=== PATIENT | male | born 1960 | race Two or more races ===

== ENCOUNTER 2018-12-29 18:17 | Emergency (ER) | payer MEDICAID ==
[~2018-12-29] VITALS: Ht 175.3 cm; Wt 90.7 kg
--- NOTE | 2018-12-29 18:17 | NUR ---
ED Nurse Note: pt is placed to room with sitter provided for safety.
[2018-12-29] MEDS ORDERED: XANAX0.5 MG ORAL (18:25)
[2018-12-29] MEDS ORDERED: LEXAPRO20 MG ORAL (18:25)
[2018-12-29 18:30] VITALS: BP 143/75
--- NOTE | 2018-12-29 18:30 | NUR ---
ED Nurse Note: Received pt from [facility] and . pt on 5150 hold for danger to self. pt brought from home due to he told family member that he will shot himself. pt appear to be drunk and hx of alcohol abuse. AAO x3. respirations even and non-labored noted. pt is cooperative. help pt to be undressed. denies SI/HI at this time. Maico, EMT at the bed side for sitter. will wait for the further order.
--- NOTE | 2018-12-29 18:35 | NUR ---
ED Nurse Note: pt has dried redness rashes on all over the body.
--- NOTE | 2018-12-29 18:44 | NUR ---
ED Nurse Note: pt belongings placed on locker #1
--- NOTE | 2018-12-29 19:05 | NUR ---
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
--- NOTE | 2018-12-29 19:24 | NUR ---
HAND-OFF: Report given to CHELSI Manning.
[2018-12-29 19:38] LABS: ANION GAP 18 mmol/L (5-15); BLOOD UREA NITROGEN 12 mg/dL (7-18); CALCIUM 8.9 MG/DL (8.5-10.1); CARBON DIOXIDE 21 MMOL/L (21-32); CHLORIDE 104 MMOL/L (98-107); POTASSIUM 3.8 MMOL/L (3.5-5.1); SODIUM 143 MMOL/L (136-145)
[2018-12-29 19:44] LABS: ALANINE AMINOTRANSFERASE 95 U/L (12-78); ALBUMIN 3.9 G/DL (3.4-5.0); ALBUMIN/GLOBULIN RATIO 0.8 (1.0-2.7); ALKALINE PHOSPHATASE 87 U/L (46-116); ASPARTATE AMINO TRANSFERASE 83 U/L (15-37); BILIRUBIN,TOTAL 0.6 MG/DL (0.2-1.0)
--- NOTE | 2018-12-29 20:40 | NUR ---
ED Nurse Note: Assisted pt to void, urine sample collected and sent to Lab.
[2018-12-29] MEDS ORDERED: LORazepam Inj 2mg/ml 1ml IV ONE (21:00)
[2018-12-29 21:12] LABS: APPEARANCE,URINE CLEAR; BILIRUBIN, URINE NEGATIVE (NEGATIVE); GLUCOSE, URINE (UA) NEGATIVE (NEGATIVE); KETONES,URINE 2+ (NEGATIVE); LEUKOCYTE ESTERASE ,URINE NEGATIVE (NEGATIVE); NITRITE,URINE NEGATIVE (NEGATIVE); PH,URINE 5 (4.5-8.0); PROTEIN,URINE 3+ (NEGATIVE); UROBILINOGEN,URINE 1 MG/DL (0.0-1.0)
[2018-12-29 21:14] LABS: COLOR,URINE YELLOW
--- NOTE | 2018-12-29 21:20 | NUR ---
ED Nurse Note: Provided a cup of water and a sandwiches,
--- NOTE | 2018-12-29 21:21 | NUR ---
ED Nurse Note: Repeat CBC sent to Lab again.
[2018-12-29 21:40] LABS: HEMATOCRIT 40.6 % (42.0-52.0); HEMOGLOBIN 14.5 G/DL (14.2-18.0); MEAN CORPUSCULAR VOLUME 93 FL (80-99); PLATELET COUNT 193 K/UL (150-450); RED BLOOD COUNT 4.36 M/UL (4.70-6.10); RED CELL DISTRIBUTION WIDTH 10.9 % (11.6-14.8); WHITE BLOOD COUNT 13.6 K/UL (4.8-10.8)
[2018-12-29 21:41] LABS: BASOPHILS % (AUTO) 1.2 % (0.0-2.0); EOSINOPHILS % (AUTO) 0.1 % (0.0-3.0); LYMPHOCYTES % (AUTO) 7.1 % (20.0-45.0); MONOCYTES % (AUTO) 4.3 % (1.0-10.0); NEUTROPHILS % (AUTO) 87.3 % (45.0-75.0)
--- NOTE | 2018-12-29 22:20 | Emergency Room Report ---
History of Present Illness General Chief Complaint: Suicidal Source: Patient, EMS (Lorne Rojo MD) Present Illness HPI 58-year-old male presents ED for evaluation. Brought in by EMS from home. Reportedly drinking all day and told family that he wanted a gun to kill himself. Patient does have psychiatric history. Upon arrival patient is intoxicated and not endorsing SI or HI. [employer] at bedside. Patient denies drug use. Denies chest pain or shortness of breath. Denies abdominal pain nausea or vomiting. No other aggravating relieving factors. Denies any other associated symptoms (Lorne Rojo MD) Allergies: Coded Allergies: No Known Allergies (Unverified , 12/29/18) Patient History Past Medical History: DM, HTN, psych hx Past Surgical History: none Pertinent Family History: none Social History: Reports: alcohol use; Denies: smoking, drug use Immunizations: UTD Reviewed Nursing Documentation: PMH: Agreed; PSxH: Agreed (Lorne Rojo MD) Nursing Documentation-PMH Hx Hypertension: Yes Hx Diabetes: Yes History Of Psychiatric Problem: Yes - depression (Lorne Rojo MD) Review of Systems All Other Systems: negative except mentioned in HPI (Lorne Rojo MD) Physical Exam Vital Signs Date Time Temp Pulse Resp B/P (MAP) Pulse Ox O2 Delivery O2 Flow Rate FiO2 12/29/18 18:17 97.9 94 16 143/75 (97) 94 Room Air Sp02 EP Interpretation: reviewed, normal General Appearance: no apparent distress, other - intoxicated Head: normocephalic, atraumatic Eyes: bilateral eye normal inspection, bilateral eye PERRL ENT: hearing grossly normal, normal pharynx, no angioedema, normal voice Neck: full range of motion, supple/symm/no masses Respiratory: chest non-tender, lungs clear, normal breath sounds, speaking full sentences Cardiovascular #1: regular rate, rhythm, no edema Cardiovascular #2: 2+ carotid (R), 2+ carotid (L), 2+ radial (R), 2+ radial (L) , 2+ dorsalis pedis (R), 2+ dorsalis pedis (L) Gastrointestinal: normal bowel sounds, non tender, soft, non-distended, no guarding, no rebound Rectal: deferred Genitourinary: normal inspection, no CVA tenderness Musculoskeletal: back normal, gait/station normal, normal range of motion, non- tender Neurologic: responsive, motor strength/tone normal, sensory intact, speech normal, other - intoxicated Psychiatric: depressed affect, other - intoxicated Reflexes: 3+ bicep (R), 3+ bicep (L), 3+ tricep (R), 3+ tricep (L), 3+ knee (R) , 3+ knee (L) Skin: normal color, no rash, warm/dry, well hydrated Lymphatic: no adenopathy (Lorne Rojo MD) Medical Decision Making Diagnostic Impression: Primary Impression: Alcohol intoxication Qualified Codes: F10.920 - Alcohol use, unspecified with intoxication, uncomplicated Additional Impression: Suicidal ideation Labs Test 12/29/18 18:55 12/29/18 20:55 12/29/18 21:30 Sodium Level 143 MMOL/L (136-145) Potassium Level 3.8 MMOL/L (3.5-5.1) Chloride Level 104 MMOL/L (98-107) Carbon Dioxide Level 21 MMOL/L (21-32) Anion Gap 18 mmol/L (5-15) Blood Urea Nitrogen 12 mg/dL (7-18) Creatinine 1.0 MG/DL (0.55-1.30) Estimat Glomerular Filtration Rate > 60 mL/min (>60) Glucose Level 70 MG/DL (74-106) Calcium Level 8.9 MG/DL (8.5-10.1) Total Bilirubin 0.6 MG/DL (0.2-1.0) Aspartate Amino Transf (AST/SGOT) 83 U/L (15-37) Alanine Aminotransferase (ALT/SGPT) 95 U/L (12-78) Alkaline Phosphatase 87 U/L (46-116) Total Protein 8.5 G/DL (6.4-8.2) Albumin 3.9 G/DL (3.4-5.0) Globulin 4.6 g/dL Albumin/Globulin Ratio 0.8 (1.0-2.7) Salicylates Level 4.0 ug/mL (2.8-20) Acetaminophen Level < 2 MCG/ML (10-30) Serum Alcohol 316 mg/dL Urine Color Yellow Urine Appearance Clear Urine pH 5 (4.5-8.0) Urine Specific [place] 1.020 (1.005-1.035) Urine Protein 3+ (NEGATIVE) Urine Glucose (UA) Negative (NEGATIVE) Urine Ketones 2+ (NEGATIVE) Urine Blood 1+ (NEGATIVE) Urine Nitrite Negative (NEGATIVE) Urine Bilirubin Negative (NEGATIVE) Urine Urobilinogen 1 MG/DL (0.0-1.0) Urine Leukocyte Esterase Negative (NEGATIVE) Urine RBC 0-2 /HPF (0 - 0) Urine WBC 0-2 /HPF (0 - 0) Urine Squamous Epithelial Cells Occasional /LPF Urine Bacteria Few /HPF (NONE) Urine Opiates Screen Negative (NEGATIVE) Urine Barbiturates Screen Negative (NEGATIVE) Phencyclidine (PCP) Screen Negative (NEGATIVE) Urine Amphetamines Screen Negative (NEGATIVE) Urine Benzodiazepines Screen Negative (NEGATIVE) Urine Cocaine Screen Negative (NEGATIVE) Urine Marijuana (THC) Screen Negative (NEGATIVE) White Blood Count 13.6 K/UL (4.8-10.8) Red Blood Count 4.36 M/UL (4.70-6.10) Hemoglobin 14.5 G/DL (14.2-18.0) Hematocrit 40.6 % (42.0-52.0) Mean Corpuscular Volume 93 FL (80-99) Mean Corpuscular Hemoglobin 33.2 PG (27.0-31.0) Mean Corpuscular Hemoglobin Concent 35.7 G/DL (32.0-36.0) Red Cell Distribution Width 10.9 % (11.6-14.8) Platelet Count 193 K/UL (150-450) Mean Platelet Volume 6.5 FL (6.5-10.1) Neutrophils (%) (Auto) 87.3 % (45.0-75.0) Lymphocytes (%) (Auto) 7.1 % (20.0-45.0) Monocytes (%) (Auto) 4.3 % (1.0-10.0) Eosinophils (%) (Auto) 0.1 % (0.0-3.0) Basophils (%) (Auto) 1.2 % (0.0-2.0) (Lorne Rojo MD) ER Course Patient signed out to me. He presents with suicidal thoughts and also has a very high alcohol level. He has been sleeping through the night without any problem. Repeat labs unremarkable. Alcohol level less than 100. He is medically clear for psychiatric evaluation. (Gilberto Simpson MD) ER Course Please see above note. Patient awake and coherent. Ate breakfast. Ambulatory. He denies SI. Never to AA. States wants to go home. Will have psychiatry eval for removal of hold. Patient evaluated by psychiatrist. Hold removed. No signs of alcohol withdrawal. Family member present. Discharge instructions given. Referrals for rehab and alcohol treatment given. Patient stable for outpatient observation and treatment. (Gwyn Dawkins MD) Last Vital Signs Date Time Temp Pulse Resp B/P (MAP) Pulse Ox O2 Delivery O2 Flow Rate FiO2 12/29/18 18:30 94 16 Room Air 12/29/18 18:30 97.9 143/75 94 Status: improved (Lorne Rojo MD) Status: improved (Gilberto Simpson MD) Last Vital Signs Date Time Temp Pulse Resp B/P (MAP) Pulse Ox O2 Delivery O2 Flow Rate FiO2 12/30/18 12:10 97.9 94 16 143/75 94 Room Air Status: improved (Gwyn Dawkins MD) Disposition: HOME, SELF-CARE Condition: Improved Referrals: NOT CHOSEN [facility]/,REFERRING (PCP) Lorne Rojo MD Dec 29, 2018 22:20 Gilberto Simpson MD Dec 30, 2018 04:38 Gwyn Dawkins MD Dec 30, 2018 07:41
--- NOTE | 2018-12-29 22:55 | NUR ---
ED Nurse Note: 2 cups of orange juices provided.
[2018-12-29] MEDS ORDERED: Morphine Sulfate 2mg/ml Inj(IV/IM USE ONLY) IVP PRN (23:15)
[2018-12-29] MEDS ORDERED: chlordiazePOXIDE 25mg Cap ORAL PRN (23:15)
[2018-12-29] MEDS ORDERED: Folic Acid 1 MG, Magnesium Sulfate 2,000 MG, Multivitamin - 12 Injection 10 ML in NS w/... IV SCH (23:15)
[2018-12-29] MEDS ORDERED: Miralax 17gm pkt ORAL PRN (23:15)
[2018-12-29] MEDS ORDERED: Zolpidem 5mg tab ORAL PRN (23:15)
[2018-12-29] MEDS ORDERED: LORazepam Inj 2mg/ml 1ml IV PRN (23:15)
[2018-12-29] MEDS ORDERED: Thiamine HCl 100 MG in NS 110 ML IV SCH (23:30)
--- NOTE | 2018-12-30 01:05 | NUR ---
ED Nurse Note: Wrong order entrance noted by Dr. Tran, Informed Charge nurse/ Annika.
--- NOTE | 2018-12-30 01:06 | NUR ---
ED Nurse Note: Wrong order entrance noted by Dr. Tran, Informed Charge nurse/ Mara. LEE's code is [id number] which enter on 12/29/18 @23:05.
--- NOTE | 2018-12-30 03:34 | NUR ---
ED Nurse Note: Pt is awake, alert and oriented x 4; steady gait. Denies SI at this time, stating, "No, No, I just drank too much." Addendum: 12/30/18 at 0502 by MSCHRAGE Pt denies owning a gun.
[2018-12-30 04:12] LABS: EOSINOPHILS % (AUTO) 0.9 % (0.0-3.0); HEMATOCRIT 43.1 % (42.0-52.0); HEMOGLOBIN 15.2 G/DL (14.2-18.0); LYMPHOCYTES % (AUTO) 11.9 % (20.0-45.0); MEAN CORPUSCULAR VOLUME 97 FL (80-99); NEUTROPHILS % (AUTO) 79.1 % (45.0-75.0); PLATELET COUNT 151 K/UL (150-450); RED BLOOD COUNT 4.44 M/UL (4.70-6.10); RED CELL DISTRIBUTION WIDTH 11.1 % (11.6-14.8); WHITE BLOOD COUNT 9.6 K/UL (4.8-10.8)
[2018-12-30 04:36] LABS: ALANINE AMINOTRANSFERASE 114 U/L (12-78); ALBUMIN 3.1 G/DL (3.4-5.0); ALBUMIN/GLOBULIN RATIO 0.8 (1.0-2.7); ALKALINE PHOSPHATASE 72 U/L (46-116); ANION GAP 13 mmol/L (5-15); ASPARTATE AMINO TRANSFERASE 126 U/L (15-37); BILIRUBIN,TOTAL 0.6 MG/DL (0.2-1.0); BLOOD UREA NITROGEN 14 mg/dL (7-18); CALCIUM 7.8 MG/DL (8.5-10.1); CARBON DIOXIDE 21 MMOL/L (21-32); CHLORIDE 106 MMOL/L (98-107); CREATININE 0.9 MG/DL (0.55-1.30); POTASSIUM 3.7 MMOL/L (3.5-5.1); SODIUM 140 MMOL/L (136-145)
--- NOTE | 2018-12-30 06:31 | NUR ---
ED Nurse Note: Endorsed to Sarah for continue care.
--- NOTE | 2018-12-30 06:32 | NUR ---
ED Nurse Note: received report from Annika, that folvite 1mg and vitamin B1 100mg were not administered because both are not ER orders
--- NOTE | 2018-12-30 07:00 | NUR ---
ED Nurse Note: Kashif Cantu at the bedside. Pt awake and alert, eating breakfast with no s/s of acute distress noted at this time. Suicidal precaution initiated
--- NOTE | 2018-12-30 07:10 | NUR ---
HAND-OFF: Report given toAbigail/RN for continue care. Ptis A/O X4. VSS.
--- NOTE | 2018-12-30 07:12 | NUR ---
ED Nurse Note: Received patient in bed, breathing unlabored and even. patient is done with his breakfast.
[2018-12-30] MEDS ORDERED: Heparin 5000 units/ml inj SUBQ SCH (09:00)
--- NOTE | 2018-12-30 09:04 | NUR ---
ED Nurse Note: Heparin subq ordered by Dr. Tran not followed because patient is in ER, pending psych evaluation.
--- NOTE | 2018-12-30 09:11 | NUR ---
ED Nurse Note: Spoke with nephew Travis Alexander [phone]. pt ok to discuss his status with nephew. chino Cantu at bedside.
--- NOTE | 2018-12-30 10:14 | NUR ---
ED Nurse Note: Dr. Solis at the bedside with the primary nurse
--- NOTE | 2018-12-30 10:22 | NUR ---
ED Nurse Note: Dr. Solis lifted the hold. Pt. is not on hold anymore
[2018-12-30 12:10] VITALS: BP 143/75
--- NOTE | 2018-12-30 12:10 | NUR ---
ER DISCHARGE NOTE: Patient is cleared to be discharged per ERMJordan Dawkins, Dr. Irma vila hold for this patient. pt is aox4, on room air, with stable vital signs. pt was given dc and prescription instructions, pt was able to verbalize understanding, pt id band and iv site removed without complications. pt is able to ambulate with steady gait. Patient's nephew Travis picked up the patient. pt took all belongings.
--- NOTE | 2018-12-30 19:00 | Consultation ---
DATE OF CONSULTATION: 12/30/2018 HISTORY OF PRESENT ILLNESS: This is a 58-year-old [place] man with a history of alcohol dependence who is being admitted to the [facility] ER on a 5150 for danger to self. When the patient was intoxicated, he reported to his nephew that he has thoughts of dying. During the evaluation, the patient was calm, sobered up. Denies having any suicidal or homicidal ideation. He stated when he in intoxicated, he has tendency to become more depressed and anxious and have thoughts of dying. The patient stated that he is motivated to stop using however PAST PSYCHIATRY HISTORY: He has no history of psychiatrist hospitalization, no 5150. No suicide attempts. PAST MEDICAL HISTORY: Obesity, hyperlipidemia. ALLERGIES: No known drug allergies. SUBSTANCE ABUSE HISTORY: Significant for alcohol. Denied any illicit drug use. MENTAL STATUS EXAMINATION: The patient is oriented to self. Mood is anxious. Affect is constricted, congruent with mood. Thought process is linear and goal oriented. Thought content, no suicidal or homicidal ideation. No psychotic symptoms. Insight and judgment is clear. ASSESSMENT: Alpha I Alcohol dependence, Alpha II Deferred. Alpha III None. Alpha IV Low to moderate. Alpha V 50. PLAN: 1. We will discontinue 5150. 2. The patient will be discharged to the outpatient level of care. 3. The patient will be given referral to drug and alcohol program. The patient is reluctant to take psychotropic medication. 4. Daniel Solis M.D. DR: Gely JOB#: [id number] CC:
== END 2018-12-30 12:10 | disposition home or self-care (01) ==
LOC: EDBD 18:17 → EMR 19:00
DX: R45.851 Suicidal ideations (principal); F10.920 Alcohol use, unspecified with intoxication, uncomplicated; E11.9 Type 2 diabetes mellitus without complications; I10 Essential (primary) hypertension
CPT/HCPCS: 36415; 80053; 80307; 80329; 81003; 85025; 96361; 96374; 99285

== ENCOUNTER 2020-04-11 09:28 | Emergency (ER) | payer OTHER ==
[~2020-04-11] VITALS: Ht 165.1 cm; Wt 77.1 kg
[2020-04-11 09:24] VITALS: BP 147/67
[~2020-04-11 09:28] MED LIST: LEXAPRO20 MG ORAL; XANAX0.5 MG ORAL
[2020-04-11] MEDS ORDERED: Aspirin Baby 81mg ORAL ONE (10:15)
[2020-04-11 10:23] LABS: BASOPHILS % (AUTO) 0.9 % (0.0-2.0); EOSINOPHILS % (AUTO) 2.3 % (0.0-3.0); HEMATOCRIT 41.4 % (42.0-52.0); LYMPHOCYTES % (AUTO) 19.3 % (20.0-45.0); MEAN CORPUSCULAR VOLUME 87 FL (80-99); MONOCYTES % (AUTO) 7.2 % (1.0-10.0); NEUTROPHILS % (AUTO) 70.3 % (45.0-75.0); PLATELET COUNT 241 K/UL (150-450); RED BLOOD COUNT 4.74 M/UL (4.70-6.10); RED CELL DISTRIBUTION WIDTH 10.9 % (11.6-14.8); WHITE BLOOD COUNT 7.5 K/UL (4.8-10.8)
[2020-04-11 10:27] LABS: APPEARANCE,URINE CLEAR; BILIRUBIN, URINE NEGATIVE (NEGATIVE); GLUCOSE, URINE (UA) NEGATIVE (NEGATIVE); KETONES,URINE 1+ (NEGATIVE); LEUKOCYTE ESTERASE ,URINE NEGATIVE (NEGATIVE); NITRITE,URINE NEGATIVE (NEGATIVE); PH,URINE 7 (4.5-8.0); PROTEIN,URINE NEGATIVE (NEGATIVE); UROBILINOGEN,URINE NORMAL MG/DL (0.0-1.0)
[2020-04-11 10:29] LABS: COLOR,URINE YELLOW
[2020-04-11 10:36] LABS: ANION GAP 4 mmol/L (5-15); BLOOD UREA NITROGEN 19 mg/dL (7-18); CALCIUM 9.2 MG/DL (8.5-10.1); CARBON DIOXIDE 31 MMOL/L (21-32); CHLORIDE 100 MMOL/L (98-107); POTASSIUM 3.9 MMOL/L (3.5-5.1); SODIUM 135 MMOL/L (136-145)
[2020-04-11 10:50] LABS: ALBUMIN 3.6 G/DL (3.4-5.0); ALBUMIN/GLOBULIN RATIO 0.8 (1.0-2.7); ALKALINE PHOSPHATASE 75 U/L (46-116); ASPARTATE AMINO TRANSFERASE 19 U/L (15-37); BILIRUBIN,TOTAL 0.4 MG/DL (0.2-1.0)
--- NOTE | 2020-04-11 10:59 | Diagnostic Imaging Report ---
EXAM: CT CT Neck no Contrast CLINICAL HISTORY: Reason For Exam: DYSPHAGIA. "Food stuck in throat for 2 days" TECHNIQUE: Axial images obtained through the neck without administration of contrast. Coronal and sagittal reformatted images were also obtained. All CT scans at this facility are performed using dose modulation techniques as appropriate to a performed exam including the following: automated exposure control with adjustment of the mA and/or kV according to patient size. RADIATION DOSE: CTDIvol: 14.6 mGy DLP: 472.4 mGy-cm Dose information generated by the CT scanner is available in PACS. COMPARISON: None FINDINGS: Visualized portions of the nasal sinuses appears normally pneumatized and aerated. Pharyngeal and parapharyngeal soft tissue space is normal. [place] tonsillar pillars are unremarkable. The salivary glands are symmetric bilaterally. There are several small scattered lymph nodes noted but no pathologic adenopathy seen presently. The base of the tongue and floor of the mouth region appears unremarkable. Epiglottic and vocal cord regions also normal. The thyroid appears homogeneous. There is no supraclavicular adenopathy. Specifically there is no radiopaque foreign body demonstrated. IMPRESSION: No radiopaque foreign body identified.
[2020-04-11 11:04] LABS: ALANINE AMINOTRANSFERASE 29 U/L (12-78)
[2020-04-11 11:24] VITALS: BP 152/81
[2020-04-11 13:10] VITALS: BP 146/79
--- NOTE | 2020-04-11 13:18 | Emergency Room Report ---
History of Present Illness General Chief Complaint: General Complaint Source: Patient, EMS Present Illness HPI Patient is a 59-year-old male who presented after increased chest discomfort and difficulty with swallowing. Prior history of CVA. Patient had previous myocardial infarction and had previously been placed on ECMO. Had Allergies: Coded Allergies: No Known Allergies (Unverified , 12/29/18) COVID-19 Screening Contact w/high risk pt: No Experienced COVID-19 symptoms?: No COVID-19 Testing performed DATA BASE DESIGN ANALYST: No Patient History Past Medical History: see triage record Reviewed Nursing Documentation: PMH: Agreed; PSxH: Agreed Nursing Documentation-PMH Hx Hypertension: Yes Review of Systems All Other Systems: negative except mentioned in HPI Physical Exam Vital Signs Date Time Temp Pulse Resp B/P (MAP) Pulse Ox O2 Delivery O2 Flow Rate FiO2 04/11/20 09:16 98.6 60 16 147/67 (93) 99 Room Air Sp02 EP Interpretation: reviewed, normal General Appearance: normal inspection, well appearing, no apparent distress, alert, GCS 15, non-toxic, Chronically Ill Head: atraumatic ENT: normal ENT inspection, hearing grossly normal, normal voice Neck: normal inspection, full range of motion, supple, no bony tend Respiratory: normal inspection, lungs clear, normal breath sounds, no respiratory distress, no retraction, no wheezing Cardiovascular #1: regular rate, rhythm, no edema Gastrointestinal: normal inspection, normal bowel sounds, non tender, soft, no guarding, no hernia Genitourinary: no CVA tenderness Musculoskeletal: normal inspection, back normal, normal range of motion Neurologic: alert, responsive, speech normal, normal inspection Psychiatric: normal inspection, judgement/insight normal, mood/affect normal Medical Decision Making Diagnostic Impression: Primary Impression: Chest pain Additional Impression: Dysphagia as late effect of cerebrovascular accident (CVA) ER Course Patient presented with chest pain. Differential diagnosis include was not limited to myocardial infarction, esophageal foreign body, achalasia, pneumonia among others. Because of complexity of patient's case laboratory tests and imaging studies were ordered. Patient symptoms appear to be primarily difficulty with swallowing he states that he is able to pass liquids but has difficulty with some solids. According to the patient's nephew had previous CVA with resulting difficulty swallowing. CT imaging showed no evidence of radiopaque foreign body. Patient's laboratory testing was unremarkable. Given the patient's prior history of cardiac arrest and previous medical history I felt that hospitalization for observation would be warranted. The patient was advised risk benefits alternatives of leaving AGAINST MEDICAL ADVICE and he indicated understanding and all questions are answered patient still continued want to leave and signed AGAINST MEDICAL ADVICE. Despite risks including but not limited to disability and worsening of current lifestyle. Patient i ndicates understanding wants to leave the hospital. All questions were answered. Appears capable of making his own decisions. Family members were advised of his leaving the hospital and patient was advised to return at any time. This medical record is generated with [employer] social service worker software. There may be some social service worker discrepancies related to use of this software Labs Test 04/11/20 09:50 White Blood Count 7.5 K/UL (4.8-10.8) Red Blood Count 4.74 M/UL (4.70-6.10) Hemoglobin 15.0 G/DL (14.2-18.0) Hematocrit 41.4 % (42.0-52.0) Mean Corpuscular Volume 87 FL (80-99) Mean Corpuscular Hemoglobin 31.6 PG (27.0-31.0) Mean Corpuscular Hemoglobin Concent 36.1 G/DL (32.0-36.0) Red Cell Distribution Width 10.9 % (11.6-14.8) Platelet Count 241 K/UL (150-450) Mean Platelet Volume 7.1 FL (6.5-10.1) Neutrophils (%) (Auto) 70.3 % (45.0-75.0) Lymphocytes (%) (Auto) 19.3 % (20.0-45.0) Monocytes (%) (Auto) 7.2 % (1.0-10.0) Eosinophils (%) (Auto) 2.3 % (0.0-3.0) Basophils (%) (Auto) 0.9 % (0.0-2.0) Urine Color Yellow Urine Appearance Clear Urine pH 7 (4.5-8.0) Urine Specific [place] 1.010 (1.005-1.035) Urine Protein Negative (NEGATIVE) Urine Glucose (UA) Negative (NEGATIVE) Urine Ketones 1+ (NEGATIVE) Urine Blood Negative (NEGATIVE) Urine Nitrite Negative (NEGATIVE) Urine Bilirubin Negative (NEGATIVE) Urine Urobilinogen Normal MG/DL (0.0-1.0) Urine Leukocyte Esterase Negative (NEGATIVE) Sodium Level 135 MMOL/L (136-145) Potassium Level 3.9 MMOL/L (3.5-5.1) Chloride Level 100 MMOL/L (98-107) Carbon Dioxide Level 31 MMOL/L (21-32) Anion Gap 4 mmol/L (5-15) Blood Urea Nitrogen 19 mg/dL (7-18) Creatinine 1.0 MG/DL (0.55-1.30) Estimat Glomerular Filtration Rate > 60 mL/min (>60) Glucose Level 110 MG/DL (74-106) Calcium Level 9.2 MG/DL (8.5-10.1) Total Bilirubin 0.4 MG/DL (0.2-1.0) Aspartate Amino Transf (AST/SGOT) 19 U/L (15-37) Alanine Aminotransferase (ALT/SGPT) 29 U/L (12-78) Alkaline Phosphatase 75 U/L (46-116) Troponin I 0.000 ng/mL (0.000-0.056) Total Protein 8.3 G/DL (6.4-8.2) Albumin 3.6 G/DL (3.4-5.0) Globulin 4.7 g/dL Albumin/Globulin Ratio 0.8 (1.0-2.7) EKG Diagnostic Results Rate: normal Rhythm: NSR ST Segments: no acute changes Last Vital Signs Date Time Temp Pulse Resp B/P (MAP) Pulse Ox O2 Delivery O2 Flow Rate FiO2 04/11/20 11:24 98.6 56 17 152/81 100 Room Air Status: improved Disposition: AGAINST MEDICAL ADVICE Condition: Unknown Referrals: [facility],REFERRING (PCP) Gilberto Ball MD Apr 11, 2020 13:17
[2020-04-11 14:06] VITALS: BP 137/77
--- NOTE | 2020-04-11 16:32 | Diagnostic Imaging Report ---
Indication: Chest pain Technique: One view of the chest Comparison: none Findings: Lungs and pleural spaces are clear. Heart size is normal. Impression: No acute process
--- NOTE | 2020-04-12 17:04 | Cardiology Report ---
APPROVED REPORT EKG Measurement Heart [id number] [place] [id number] <Conclusion> Sinus bradycardia Otherwise normal ECG
== END 2020-04-11 14:00 | disposition left against medical advice (07) ==
LOC: EDBD 09:28 → EMR 09:45 → MERGE 09:45 → EMR 14:00
DX: R07.9 Chest pain, unspecified (principal); I69.391 Dysphagia following cerebral infarction; R13.10 Dysphagia, unspecified; I10 Essential (primary) hypertension; I25.2 Old myocardial infarction
CPT/HCPCS: 36415; 70490; 71045; 80053; 81003; 84484; 85025; 93005; Z7502; 99284